=== PATIENT | female | born 1980 | race African-American/Black ===

== ENCOUNTER 2020-02-09 13:26 | Emergency (ER) | payer OTHER, SELFPAY ==
[2020-02-09 15:08] VITALS: BP 151/84; PULSE 81; RESP 16; TEMP 36.9; O2SAT 100; BMI 31.6
--- NOTE | 2020-02-09 15:18 | ED_ITS ---
HPI - Wound/Laceration General Chief Complaint: Skin/Abscess/Foreign Body Stated Complaint: Suture Removal Time Seen by Provider: 02/09/20 15:17 Source: patient Mode of arrival: ambulatory Limitations: no limitations History of Present Illness HPI narrative: Patient here for suture removal of her suture around the u mbilicus which she had placed after she had a tummy tuck in [place] 4 weeks ago she has had [address] follow [address] without complication she returned home and was advised in 4 weeks to have sutures removed and advised to go to any center close to her to do this. She offers no complaints. No fever, chills, pain, rash, redness, discharge. Onset (ago): day(s) Body four view annotation: 1. Umbilicus round continuous suture Associated symptoms: none Related Data Allergies Allergy/AdvReac Type Severity Reaction Status Date / Time No Known Allergies Allergy Verified 02/09/20 15:07 Review of Systems 2 Review of Systems: Constitutional: No Weight loss, No Fever, No Chills, No Night Sweats, No Fatigue, No Malaise ENT/Mouth: No Hearing loss, No Ear Pain, No Nasal Congestion, No Sinus Pain, No Hoarseness, No sore throat, No Rhinorrhea, No Swallowing Difficulty Eyes: No Eye Pain, No Swelling, No Redness, No Foreign Body, No Discharge, No Vision Changes Cardiovascular: No Chest Pain, No SOB, No Dyspnea on Exertion, No Orthopnea, No Edema, No Palpitations Respiratory: No Cough, No Sputum, No Wheezing, No Smoke Exposure, No Dyspnea Gastrointestinal: No Nausea, No Vomiting, No Diarrhea, No Constipation, No abdominal Pain, No Hematochezia, No Melena Genitourinary: no irregular bleeding, No Dysuria, No Urinary Frequency, No Hematuria, No Urinary Incontinence, No Urgency, No Flank Pain, No Urinary Flow Changes, No Hesitancy Musculoskeletal: No joint pain, No Myalgias, No Joint Swelling Skin: No Skin Lesions, No rash Neuro: No Weakness, No Numbness, No Paresthesias, No Loss of Consciousness, No Dizziness, No Headache Psych: No Social Issues Heme/Lymph: No Bruising, No Bleeding,No Lymphadenopathy Endocrine: No Polyuria, No Polydipsia, No Temperature Intolerance Yes all other systems are reviewed and are negative PMFSH Past Medical History Attestation statement: The following information was validated with the patient. Medical History (Updated 10/28/20 @ 15:19 by Ponce Pina NP) No known health problems Social History Social History Smoking Status: Never smoker Use of substances other than those prescribed or required for medical reasons: No Advance Directives: No Advance Directives Information Provided: No Physical Exam Vital Signs: Vital Signs: Vital Signs Temp Pulse Resp BP Pulse Ox 02/09/20 15:08 98.5 F 81 16 151/84 H 100 Body Mass Index 31.6 Reviewed Const: General: cooperative and healthy appearing; No acute distress or intoxicated appearing Nutritional Appearance: average body habitus Orientation/consciousness: patient oriented x3 Chest: Chest palpation & inspection: normal inspection of the chest Resp: Effort & Inspection: normal respiratory effort Cardio: Jugular venous distension: no JVD GI: Inspection: Yes normal to inspection Percussion: Yes normal to percussion Auscultation: normal bowel sounds : General: Yes no CVA tenderness Back/Spine/Pelvis: Back: no CVA tenderness Skin: General skin exam: no rashes or lesions noted Full body images: 1. Well-healed surgical jonathan no pain or discomfort. No induration/tender palpation. 2. Around the umbilical there is a single nonabsorbable suture that goes so in circumferential around the umbilicus. No pain, tender palpation, discharge, erythema. Neuro: General: patient oriented x3 Extrem: General: Yes normal to inspection Course Course Course Narrative: Given that patient had procedure done in [place] obviously cannot return to [place] to have the suture removed does not have any localized follow-up here. Has had this suture in place in 4 weeks and advised to have this removed. Single continuous suture clipped at 06:00 o'clock and removed with ease. No site infection. Discharge Plan Discharge Clinical Impression: Encounter for removal of sutures Patient Disposition: Home, Self-Care Instructions: Stitches Removal (ED) Additional Instructions: You had 1 continuous suture that was placed in the umbilicus that was removed. There is no site infection. Follow-up with your doctor as instructed Return if any concerns or worsening symptoms Thank you Referrals: Physician,Unknown [Physician] - 1 week
== END 2020-02-09 15:31 | disposition home or self-care (01) ==
PROVIDERS: Emergency Provider Emergency Medicine; PCP Nurse Practitioner
DX: Z48.02 Encounter for removal of sutures (principal)
CPT/HCPCS: 99283